=== PATIENT | female | born 1980 | race Caucasian/White ===

== ENCOUNTER 2018-08-14 23:37 | Emergency (ER) | payer OTHER ==
[~2018-08-14] VITALS: Ht 180.3 cm; Wt 95.3 kg
[2018-08-14 23:55] VITALS: Ht 180.3 cm; Wt 95.3 kg
[2018-08-15 03:02] VITALS: BP 126/56
== END 2018-08-15 03:02 | disposition home or self-care (01) ==
LOC: ED 23:37
DX: J01.90 Acute sinusitis, unspecified (principal); J02.9 Acute pharyngitis, unspecified
CPT/HCPCS: 87804; J1100; J1885

== ENCOUNTER 2018-10-21 19:54 | Emergency (ER) | payer OTHER ==
[~2018-10-21] VITALS: Ht 175.3 cm; Wt 93.0 kg
[2018-10-21 20:13] VITALS: Ht 175.3 cm; Wt 93.0 kg
[2018-10-21 21:48] VITALS: BP 130/80
== END 2018-10-21 21:48 | disposition home or self-care (01) ==
LOC: ED 19:54
DX: S93.602A Unspecified sprain of left foot, initial encounter (principal); W18.42XA Slipping, tripping and stumbling without falling due to stepping into hole or opening, initial encounter; Y93.89 Activity, other specified; Y92.89 Other specified places as the place of occurrence of the external cause; Y99.8 Other external cause status
CPT/HCPCS: J1885

== ENCOUNTER 2018-12-05 17:42 | Emergency (ER) | payer OTHER ==
[~2018-12-05] VITALS: Ht 177.8 cm; Wt 99.3 kg
[2018-12-05 17:44] VITALS: Ht 177.8 cm; Wt 99.3 kg
[2018-12-05 19:20] VITALS: BP 144/88
== END 2018-12-05 19:20 | disposition home or self-care (01) ==
LOC: ED 17:42
DX: K04.7 Periapical abscess without sinus (principal); R22.0 Localized swelling, mass and lump, head
CPT/HCPCS: J0696; J3010

== ENCOUNTER 2019-01-02 19:22 | Emergency (ER) | payer OTHER ==
[~2019-01-02] VITALS: Ht 175.3 cm; Wt 100.2 kg
[2019-01-02 19:34] VITALS: Ht 175.3 cm; Wt 100.2 kg
[2019-01-02 22:42] VITALS: BP 126/49
== END 2019-01-02 22:42 | disposition home or self-care (01) ==
LOC: ED 19:22
DX: K04.7 Periapical abscess without sinus (principal); R22.0 Localized swelling, mass and lump, head; M50.30 Other cervical disc degeneration, unspecified cervical region
CPT/HCPCS: J1100; J1885; J3490; J7030; J7060